=== PATIENT | female | born 1990 | race Two or more races ===

== ENCOUNTER 2022-06-16 00:54 | Emergency (ER) | payer OTHER ==
[~2022-06-16] VITALS: Ht 160 cm; Wt 86.4 kg
[2022-06-16 01:12] VITALS: BP 157/91
[2022-06-16] MEDS ORDERED: KETOROLAC TROMETH 60MG/2ML VIAL IM ONE (01:30)
== END 2022-06-16 02:58 | disposition home or self-care (01) ==
LOC: ER 00:58
DX: S10.91XA Abrasion of unspecified part of neck, initial encounter (principal); S30.811A Abrasion of abdominal wall, initial encounter; R51.9 Headache, unspecified; V43.52XA Car driver injured in collision with other type car in traffic accident, initial encounter; Y92.488 Other paved roadways as the place of occurrence of the external cause; Y99.8 Other external cause status
CPT/HCPCS: 96372; 99283; J1885